=== PATIENT | female | born 1965 | race Two or more races ===

== ENCOUNTER 2017-08-13 01:14 | Emergency (ER) | payer SELFPAY ==
[~2017-08-13] VITALS: Ht 157.5 cm; Wt 63.5 kg
[2017-08-13] MEDS ORDERED: Neosporin Oint Ud Pkt TOP ONE (01:45)
--- NOTE | 2017-08-13 02:10 | Emergency Room Report ---
History of Present Illness General Chief Complaint: Lower Extremity Injury Source: Patient, EMS Present Illness HPI The patient presents with left leg pain. She's not sure how this happened. Paramedics were summoned to a parking lot. Allegedly she denies alcohol. Had cigarettes in her hands. Accu-Chek was normal in the field. She claims her last tetanus shot was 3 years ago. She does have lesions on her feet and also some scrapes on her arms. She denies taking any medication for this. She denies RAMOS, chest pain, SOB, dysuria, NVD, other joint pain. She denies SI. No answer regarding drugs. Allergies: Coded Allergies: No Known Allergies (Unverified , 08/13/17) Patient History Past Medical History: see triage record Social History: Reports: smoking, Denies: alcohol use Social History Narrative streets Last Menstrual Period: none Reviewed Nursing Documentation: PMH: Agreed, PSxH: Agreed Nursing Documentation-PMH Past Medical History: No Stated History Review of Systems All Other Systems: negative except mentioned in HPI Physical Exam Vital Signs Date Time Temp Pulse Resp B/P (MAP) Pulse Ox O2 Delivery O2 Flow Rate FiO2 08/13/17 01:15 98.1 84 16 132/84 98 Room Air Sp02 EP Interpretation: reviewed, normal General Appearance: other - dishevelled Head: normocephalic Eyes: bilateral eye PERRL, bilateral eye Scleral Injection ENT: moist mucus membranes Neck: full range of motion, supple, no bony tend Respiratory: chest non-tender, lungs clear, normal breath sounds Cardiovascular #1: regular rate, rhythm Cardiovascular #2: 2+ radial (R) Gastrointestinal: normal inspection, normal bowel sounds, non tender, no mass, non-distended Musculoskeletal: pelvis stable, swelling, tender - L knee, ligs with some laxity, no drawer Neurologic: alert, motor strength/tone normal, DTRs symmetric, sensory intact, cerebellar normal, other - speech slurred, oriented - X2 Skin: warm/dry, other - T pedis and blisters, no erythema Medical Decision Making Diagnostic Impression: Primary Impression: Contusion of left knee Qualified Codes: S80.02XA - Contusion of left knee, initial encounter Additional Impressions: Osteoarthritis Qualified Codes: M17.12 - Unilateral primary osteoarthritis, left knee Altered mental state Qualified Codes: R40.0 - Somnolence Amphetamine abuse ER Course Patient presents with left leg pain. By my exam localized at the pain is in her knee. Differential includes fracture, contusion, sprain and strain. In addition to that she is slurring her words and very sleepy. Differential of this includes bleed, electrolyte abnormality, drug ingestion amongst others. Evaluation will be with x-ray of her knee, labs come EKG CT of the head and chest x-ray. She will be treated with IV hydration. She will be given motrin and skin lesions will be treated with neosporin. X-ray of the knee reveals a tibial plateau fracture that appears old however due to the clinical exam she needs to have stabilization. The knee immobilizers ordered. A knee immobilizer is applied by the ER tacked in position is excellent and distal neurovascular is normal. The patient was still somnolent. We're waiting for a urinalysis to return. UA with + amphetamines. Labs with mild elevated CK with normal renal function. Still somnolent. Immobilizer place by tech. Position good/neurovasc normal. Able to stand but too sleepy to ambulate. Signed out to Dr. Marques. Laboratory Tests Test 08/13/17 02:30 08/13/17 05:40 08/13/17 08:10 White Blood Count 12.0 K/UL (4.8-10.8) H Red Blood Count 4.29 M/UL (4.20-5.40) Hemoglobin 13.5 G/DL (12.0-16.0) Hematocrit 39.4 % (37.0-47.0) Mean Corpuscular Volume 92 FL (80-99) Mean Corpuscular Hemoglobin 31.3 PG (27.0-31.0) H Mean Corpuscular Hemoglobin Concent 34.2 G/DL (32.0-36.0) Red Cell Distribution Width 12.7 % (11.6-14.8) Platelet Count 253 K/UL (150-450) Mean Platelet Volume 6.1 FL (6.5-10.1) L Neutrophils (%) (Auto) 84.3 % (45.0-75.0) H Lymphocytes (%) (Auto) 9.9 % (20.0-45.0) L Monocytes (%) (Auto) 5.3 % (1.0-10.0) Eosinophils (%) (Auto) 0.1 % (0.0-3.0) Basophils (%) (Auto) 0.5 % (0.0-2.0) Prothrombin Time 10.0 SEC (9.30-11.50) Prothrombin Time INR 1.0 (0.9-1.1) PTT 30 SEC (23-33) Sodium Level 138 mEQ/L (135-145) Potassium Level 3.3 mEQ/L (3.4-4.9) L Chloride Level 97 mEQ/L (98-107) L Carbon Dioxide Level 25 mEQ/L (20-30) Anion Gap 16 (5-15) H Blood Urea Nitrogen 9 mg/dL (7-23) Creatinine 0.7 mg/dL (0.5-0.9) Estimate Glomerular Filtration Rate > 60 mL/min (>60) Glucose Level 134 mg/dL (74-106) H Uric Acid 5.5 mg/dL (3.0-7.5) Calcium Level 9.2 mg/dL (8.6-10.2) Total Bilirubin 1.7 mg/dL (0.0-1.2) H Direct Bilirubin 0.3 mg/dL (0.1-0.3) Aspartate Amino Transferase (AST) 90 U/L (5-40) H Alanine Aminotransferase (ALT) 44 U/L (3-33) H Alkaline Phosphatase 76 U/L (35-104) Total Creatine Kinase 4445 U/L (26-140) H 3135 U/L (26-140) H Total Protein 7.4 g/dL (6.6-8.7) Albumin 4.3 g/dL (3.5-5.2) Globulin 3.1 g/dL Albumin/Globulin Ratio 1.3 (1.0-2.7) Salicylates Level < 1 mg/dL (10-30) L Acetaminophen Level < 10 ug/mL (10-30) L Serum Alcohol < 10 mg/dL Urine Color Yellow Urine Appearance Clear Urine pH 6 (4.5-8.0) Urine Specific [place] 1.015 (1.005-1.035) Urine Protein Negative (NEGATIVE) Urine Glucose (UA) Negative (NEGATIVE) Urine Ketones 3+ (NEGATIVE) H Urine Occult Blood 2+ (NEGATIVE) H Urine Nitrite Positive (NEGATIVE) H Urine Bilirubin Negative (NEGATIVE) Urine Urobilinogen Normal MG/DL (0.0-1.0) Urine Leukocyte Esterase 1+ (NEGATIVE) H Urine RBC 2-4 /HPF (0 - 2) H Urine WBC 2-4 /HPF (0 - 2) Urine Squamous Epithelial Cells Few /LPF (NONE/OCC) Urine Bacteria Moderate /HPF (NONE) H Urine Opiates Screen Negative (NEGATIVE) Urine Barbiturates Screen Negative (NEGATIVE) Phencyclidine (PCP) Screen Negative (NEGATIVE) Urine Amphetamines Screen Positive (NEGATIVE) H Urine Benzodiazepines Screen Negative (NEGATIVE) Urine Cocaine Screen Negative (NEGATIVE) Urine Marijuana (THC) Screen Negative (NEGATIVE) EKG Diagnostic Results Rate: normal Rhythm: NSR ST Segments: no acute changes Rhythm Strip Diag. Results EP Interpretation: yes Rhythm: NSR, no PVC's, no ectopy Other X-Ray Diagnostic Results Other X-Ray Diagnostic Results : X-Ray ordered: L knee # of Views/Limited Vs Complete: 3 View Indication: Other EP Interpretation: Yes Interpretation: no dislocation, no soft tissue swelling, other - looks like old tibial plateau fx (rounded edges) CT/MRI/US Diagnostic Results CT/MRI/US Diagnostic Results : Imaging Test Ordered: head Impression no bleed, fx Last Vital Signs Date Time Temp Pulse Resp B/P (MAP) Pulse Ox O2 Delivery O2 Flow Rate FiO2 08/13/17 16:29 16 130/80 98 Room Air 08/13/17 12:30 98.7 70 Status: improved Disposition: PLACE IN OBSERVATION Condition: Improved Scripts Ciprofloxacin Hcl* (CIPROFLOXACIN HCL*) 500 Mg Tablet 500 MG ORAL Q12H, #14 TAB 0 Refills Prov: JESSICA MARQUES D.O. 08/13/17 Ibuprofen* (MOTRIN*) 600 Mg Tablet 600 MG ORAL Q6H Y for For Pain, #20 TAB Prov: Gordon De Oliveira M.D. 08/13/17 Referrals: NOT CHOSEN STORMY/,REFERRING (PCP) Gordon De Oliveira M.D. Aug 13, 2017 02:10
[2017-08-13 02:52] LABS: BASOPHILS % (AUTO) 0.5 % (0.0-2.0); EOSINOPHILS % (AUTO) 0.1 % (0.0-3.0); LYMPHOCYTES % (AUTO) 9.9 % (20.0-45.0); MEAN CORPUSCULAR HEMOGLOBIN 31.3 PG (27.0-31.0); MEAN CORPUSCULAR HGB CONC 34.2 G/DL (32.0-36.0); MEAN CORPUSCULAR VOLUME 92 FL (80-99); MEAN PLATELET VOLUME 6.1 FL (6.5-10.1); MONOCYTES % (AUTO) 5.3 % (1.0-10.0); NEUTROPHILS % (AUTO) 84.3 % (45.0-75.0); PLATELET COUNT 253 K/UL (150-450); RED BLOOD COUNT 4.29 M/UL (4.20-5.40); RED CELL DISTRIBUTION WIDTH 12.7 % (11.6-14.8)
[2017-08-13 03:09] LABS: ACETAMINOPHEN < 10 ug/mL (10-30); ALANINE AMINOTRANSFERASE 44 U/L (3-33); ALBUMIN/GLOBULIN RATIO 1.3 (1.0-2.7); ALCOHOL < 10 mg/dL; ANION GAP 16 (5-15); ASPARTATE AMINO TRANSFERASE 90 U/L (5-40); CALCIUM 9.2 mg/dL (8.6-10.2); CARBON DIOXIDE 25 mEQ/L (20-30); CHLORIDE 97 mEQ/L (98-107); CREATININE 0.7 mg/dL (0.5-0.9); GLOMERULAR FILTRATION RATE > 60 mL/min (>60); POTASSIUM 3.3 mEQ/L (3.4-4.9); SODIUM 138 mEQ/L (135-145); TOTAL PROTEIN 7.4 g/dL (6.6-8.7); URIC ACID 5.5 mg/dL (3.0-7.5)
[2017-08-13 03:43] LABS: BILIRUBIN,DIRECT 0.3 mg/dL (0.1-0.3); HEMOLYSIS 1
[2017-08-13 05:56] LABS: APPEARANCE,URINE CLEAR; KETONES,URINE 3+ (NEGATIVE); LEUKOCYTE ESTERASE ,URINE 1+ (NEGATIVE); NITRITE,URINE POSITIVE (NEGATIVE); PH,URINE 6 (4.5-8.0); PROTEIN,URINE NEGATIVE (NEGATIVE); UROBILINOGEN,URINE NORMAL MG/DL (0.0-1.0)
[2017-08-13 06:14] LABS: BACTERIA,URINE MODERATE /HPF; SQUAMOUS EPITHELIAL CELL,UR FEW /LPF (NONE/OCC)
[2017-08-13] MEDS ORDERED: IBUPROFEN600 MG ORAL (07:03)
[2017-08-13 08:13] VITALS: BP 113/70
[2017-08-13] MEDS ORDERED: cefTRIAXone 1 GM in NS 55 ML IVPB ONE (08:45)
--- NOTE | 2017-08-13 08:56 | Diagnostic Imaging Report ---
Indication: The level of consciousness Technique: Contiguous 5 mm thick transaxial imaging of the head obtained in a Siemens Sensation [address] scanner. Soft tissue and bone windows generated. Total Dose length Product (DLP): [address] Dose Index Volume (CTDIvol): 70.38, 0.15 mGy Comparison: none Findings: The size and configuration of the cortical sulci, basal cisterns, and ventricles are within normal limits for age. There is no mass effect, midline shift, or edema identified. There is no evidence of acute hemorrhage or abnormal intra-axial or extra-axial fluid collections. The bones and soft tissues are unremarkable. Impression: No mass effect, edema or acute bleed. [facility] has communicated the preliminary results to the Emergency Department. Their findings are largely concordant with this report. The CT scanner at [facility] is accredited by the [employer] and the scans are performed using dose optimization techniques as appropriate to a performed exam including Automatic Exposure control.
[2017-08-13 09:20] VITALS: BP 108/75
[2017-08-13] MEDS ORDERED: CIPROFLOXACIN500 M2 ORAL (09:31)
[2017-08-13 10:15] VITALS: BP 112/76
--- NOTE | 2017-08-13 10:16 | Diagnostic Imaging Report ---
Indication: Pain 3 views of the left knee were obtained. Findings: Hypertrophic osteophyte formation and severe within the knee. Joint space narrowing is present. There are also osseous structures the posterior part of the knee joint some of which may be intracapsular. Joint effusion is present. Impression: Joint effusion Moderate hypertrophic osteoarthritis. Posterior osseous bodies some of which may be intra-articular.
[2017-08-13 12:30] VITALS: BP 118/72
[2017-08-13 16:29] VITALS: BP 130/80
--- NOTE | 2017-08-19 23:24 | Cardiology Report ---
APPROVED REPORT EKG Measurement Heart [id number] Normal sinus rhythm Cannot rule out Anterior infarct, age undetermined Abnormal ECG
== END 2017-08-13 17:00 | disposition home or self-care (01) ==
LOC: EDBD 01:14 → EMR 01:29
DX: S80.02XA Contusion of left knee, initial encounter (principal); X58.XXXA Exposure to other specified factors, initial encounter; Y92.481 Parking lot as the place of occurrence of the external cause; M17.12 Unilateral primary osteoarthritis, left knee; R41.82 Altered mental status, unspecified; F15.10 Other stimulant abuse, uncomplicated
CPT/HCPCS: 36415; 70450; 73562; 80053; 80300; 81003; 82248; 82550; 84550; 85025; 85610; 85730; 87086; 87181; 93005; 96374; 96375; 99284; G0480; J0696; 80329